=== PATIENT | male | born 1985 | race Caucasian/White ===

== ENCOUNTER 2020-08-11 20:54 | Outpatient (REF) | payer MEDICAID, SELFPAY ==
[2020-08-13 13:43] LABS: SARS-CoV-2 RNA Undetected (Undetected); SARS-CoV-2 Specimen Source Nasal
== END 2020-08-11 21:14 ==
LOC: NCHCN 20:54
PROVIDERS: Visit Provider Nurse Practitioner Family
DX: Z20.828 Contact with and (suspected) exposure to other viral communicable diseases (principal)
CPT/HCPCS: U0003

== ENCOUNTER 2025-03-05 18:28 | Outpatient (REF) | payer MEDICAID, SELFPAY ==
[2025-03-05 20:31] LABS: HCT 44.9 % (40.0-50.0); HGB 15.5 g/dL (13.5-17.5); MCH 31.2 pg (27.0-33.0); MCHC 34.5 % (32.0-36.0); MCV 90 fL (80-95); MPV 10.4 fL (8.0-11.0); Platelet Count 198 10^3/uL (130-400); RBC 4.97 10^6/uL (4.36-5.78); RDW 12.7 % (11.8-14.1); RDW-SD 42.1 fL; WBC 7.35 10^3/uL (4.4-10.8)
[2025-03-05 20:43] LABS: ALT 32 U/L (16-63); AST 16 U/L (15-37); Albumin 4.3 g/dL (3.4-5.0); Alkaline Phosphatase 82 U/L (46-116); BUN 16 mg/dL (7-18); Bilirubin, Total 0.4 mg/dL (0.2-1.0); CREATININE 1.1 mg/dL (0.70-1.30); Calcium 8.7 mg/dL (8.5-10.1); Calculated LDL 98 mg/dL (<100); Chloride 103 mmol/L (98-107); Cholesterol 177 mg/dL (<200); Estimated GFR 86.49 (mL/min/1.73m2); Glucose 95 mg/dL (74-106); HDL Cholesterol 56 mg/dL (>or=40); Sodium 139 mmol/L (136-145); Total Protein 7.3 g/dL (6.4-8.2); Triglyceride 116 mg/dL (<150)
== END 2025-03-05 18:29 | disposition home or self-care (01) ==
LOC: NCHCN 18:28
PROVIDERS: Visit Provider Nurse Practitioner Family
DX: Z00.00 Encounter for general adult medical examination without abnormal findings (principal)
CPT/HCPCS: 80053; 80061; 85027

== ENCOUNTER 2025-08-06 14:42 | Outpatient (REF) | payer MEDICAID, SELFPAY ==
[2025-08-06 20:42] LABS: TSH (W/Ref FT4) 0.76 uIU/mL (0.55-4.78)
== END 2025-08-06 14:43 | disposition home or self-care (01) ==
LOC: NCHCN 14:42
PROVIDERS: Visit Provider Nurse Practitioner Family
DX: F41.8 Other specified anxiety disorders (principal)
CPT/HCPCS: 84443